=== PATIENT | female | born 1960 | race Caucasian/White ===

== ENCOUNTER 2018-01-25 15:12 | Emergency (ER) | payer OTHER, MEDICAID ==
[~2018-01-25] VITALS: Ht 167.6 cm; Wt 68.2 kg
[~2018-01-25 15:12] MED LIST: LEVO50TA67 PO; METO10TA3 PO; PROM25TA14 PO; [UNRECOGNIZED DRUG - CODE] PO; [UNRECOGNIZED DRUG - CODE] SQ
[2018-01-25] MEDS ORDERED: ALPRAZolam 0.5mg tablet PO ONE (15:45)
[2018-01-25 16:02] LABS: BASOPHILS % (AUTO) 0.4 % (0-1); EOSINOPHILS # (AUTO) 0.2 X10'3 (0-0.9); EOSINOPHILS % (AUTO) 3.1 % (0-6); HEMATOCRIT 42.9 % (35.0-45.0); HEMOGLOBIN 14.7 g/dl (12.0-16.0); LYMPHOCYTES # (AUTO) 1.4 X10'3 (1.1-4.8); LYMPHOCYTES % (AUTO) 28.2 % (21-51); MEAN CORPUSCULAR HEMOGLOBIN 31.3 PG (27.0-31.0); MEAN CORPUSCULAR HGB CONC 34.3 % (33.0-36.5); MEAN CORPUSCULAR VOLUME 91.3 FL (78-98); MEAN PLATELET VOLUME 6.8 FL (7.4-10.4); MONOCYTES # (AUTO) 0.3 X10'3 (0-0.9); MONOCYTES % (AUTO) 6.5 % (2-12); NEUTROPHILS # (AUTO) 3.1 X10'3 (1.8-7.7); NEUTROPHILS % (AUTO) 61.8 % (42-75); PLATELET COUNT 197 X10'3 (140-440); RED BLOOD COUNT 4.69 X10'6 (4.20-5.60); RED CELL DISTRIBUTION WIDTH 13.2 % (11.5-14.5); WHITE BLOOD COUNT 5.1 X10'3 (4.5-11.0)
[2018-01-25 16:06] LABS: URINE HCG NEGATIVE (NEG)
[2018-01-25 16:10] LABS: CLARITY,URINE CLEAR (Clear); COLOR,URINE STRAW (Yellow); GLUCOSE, URINE NEGATIVE (Neg); KETONES,URINE NEGATIVE (Neg); LEUKOCYTE ESTERASE ,URINE NEGATIVE (Neg); NITRITES, URINE NEGATIVE (Neg); OCCULT BLOOD,URINE NEGATIVE (Neg); PROTEIN,URINE NEGATIVE (Neg); UROBILINOGEN,URINE 0.2 E.U/dL (0.2-1.0)
[2018-01-25 16:14] LABS: UA COLLECTION TYPE CLN CATCH MIDSTREAM
[2018-01-25 16:17] LABS: URINE AMPHETAMINE SCREEN POSITIVE (Neg); URINE BARBITUATE SCREEN NEGATIVE (Neg); URINE BENZODIAZEPINES SCREEN NEGATIVE (Neg); URINE CANNABINOID SCREEN NEGATIVE (Neg); URINE COCAINE SCREEN NEGATIVE (Neg); URINE METHADONE SCREEN NEGATIVE (Neg); URINE OPIATE SCREEN NEGATIVE (Neg); URINE PHENCYCLIDINE SCREEN NEGATIVE (Neg)
[2018-01-25 16:26] LABS: ALANINE AMINOTRANSFERASE 49 U/L (12-78); ALBUMIN 4.4 G/DL (3.4-5.0); ALBUMIN/GLOBULIN RATIO 1.3 (1.1-1.5); ALKALINE PHOSPHATASE 102 IU/L (46-116); ANION GAP 8 (8-16); ASPARTATE AMINO TRANSFERASE 38 U/L (10-37); BILIRUBIN,TOTAL 0.7 MG/DL (0.1-1.0); BLOOD UREA NITROGEN 5 MG/DL (7-18); BUN/CREATININE RATIO 7.6 (6.6-38.0); CALCIUM 9.2 MG/DL (8.5-10.1); CHLORIDE 99 MMOL/L (99-107); CREATININE 0.66 MG/DL (0.40-0.90); ETHANOL 0.051 GM/DL (0.0-0.010); GLUCOSE 95 MG/DL (70-104); POTASSIUM 3.5 MMOL/L (3.5-5.1); SODIUM 138 MMOL/L (135-145); TOTAL CARBON DIOXIDE 31.2 MMOL/L (24-32); TOTAL PROTEIN 7.7 G/DL (6.4-8.2); eGFR > 90 ML/MIN
[2018-01-25] MEDS ORDERED: OLANZapine 5mg rapidly disint. tablet PO ONE (19:25)
[2018-01-25] MEDS ORDERED: quetiapine 100mg tablet PO SCH (21:00)
[2018-01-26 05:35] VITALS: BP 84/52
[2018-01-26] MEDS ORDERED: levoTHYROXINE 75mcg tablet PO SCH (07:00)
== END 2018-01-26 13:50 | disposition home or self-care (01) ==
LOC: ER 15:12
DX: R45.851 Suicidal ideations (principal); F10.10 Alcohol abuse, uncomplicated; F15.10 Other stimulant abuse, uncomplicated; F32.9 Major depressive disorder, single episode, unspecified; E03.9 Hypothyroidism, unspecified; Z88.5 Allergy status to narcotic agent; Z79.899 Other long term (current) drug therapy
CPT/HCPCS: 36415; 80053; 80305; 80320; 81003; 81025; 84443; 85025; 99285

== ENCOUNTER 2018-01-26 11:45 | Inpatient (IN) | payer OTHER, MEDICAID ==
[~2018-01-26] VITALS: Ht 175.3 cm; Wt 75.3 kg
[~2018-01-26 11:45] MED LIST changes: -METO10TA3 PO; -PROM25TA14 PO; -[UNRECOGNIZED DRUG - CODE] PO; -[UNRECOGNIZED DRUG - CODE] SQ
[2018-01-26 19:15] VITALS: BP 97/71
[2018-01-26] MEDS ORDERED: acetaminophen 325mg tablet PO PRN ×2 (19:30)
[2018-01-26] MEDS ORDERED: traZODone 50mg tablet PO PRN (19:30)
[2018-01-26] MEDS: hydrOXYzine 10 MG tablet PO PRN (22:30)
[2018-01-27] MEDS ORDERED: polyethylene glycol 3350 17gm powd pack PO PRN (05:20)
[2018-01-27] MEDS: levoTHYROXINE 75mcg tablet PO SCH (07:15)
[2018-01-27] MEDS: docusate sod 100mg capsule PO SCH (08:26)
[2018-01-27 08:52] VITALS: BP 116/84
[2018-01-27] MEDS ORDERED: duloxetine 30mg CAPSULE.DR PO ONE (13:05)
[2018-01-27] MEDS: hydrOXYzine 10 MG tablet PO PRN (20:44)
[2018-01-28] MEDS: levoTHYROXINE 75mcg tablet PO SCH (07:29)
[2018-01-28 08:00] VITALS: BP 110/71
[2018-01-28] MEDS: duloxetine 30mg CAPSULE.DR PO SCH (08:22)
[2018-01-28] MEDS: docusate sod 100mg capsule PO SCH (08:22)
[2018-01-28 19:00] VITALS: BP 122/69
[2018-01-29] MEDS: docusate sod 100mg capsule PO SCH (07:36)
[2018-01-29] MEDS: duloxetine 30mg CAPSULE.DR PO SCH (07:36)
[2018-01-29] MEDS: levoTHYROXINE 75mcg tablet PO SCH (07:36)
[2018-01-29 08:00] VITALS: BP 126/66
[2018-01-29] MEDS ORDERED: DULO30CA51 PO (17:06)
[2018-01-29] MEDS ORDERED: TRAZ-143 PO (17:06)
[2018-01-29] MEDS ORDERED: LEVO75TA7 PO (17:06)
[2018-01-29] MEDS: hydrOXYzine 10 MG tablet PO PRN (19:14)
[2018-01-29 20:00] VITALS: BP 116/64
[2018-01-30] MEDS: levoTHYROXINE 75mcg tablet PO SCH (07:06)
[2018-01-30 07:11] VITALS: BP 115/64
[2018-01-30] MEDS: duloxetine 30mg CAPSULE.DR PO SCH (08:25)
[2018-01-30] MEDS: docusate sod 100mg capsule PO SCH (08:25)
== END 2018-01-30 14:45 | disposition home or self-care (01) | DRG 885 ==
LOC: ADULT MH 11:45
PROVIDERS: ADMIT Psychiatry & Neurology Psychiatry; ATTEND Psychiatry & Neurology Psychiatry
DX: F33.9 Major depressive disorder, recurrent, unspecified (principal); R45.851 Suicidal ideations; F11.20 Opioid dependence, uncomplicated; E03.9 Hypothyroidism, unspecified; F10.10 Alcohol abuse, uncomplicated; Z71.6 Tobacco abuse counseling; F43.10 Post-traumatic stress disorder, unspecified; F15.10 Other stimulant abuse, uncomplicated; M19.041 Primary osteoarthritis, right hand; Z87.891 Personal history of nicotine dependence
CPT/HCPCS: 87070

== ENCOUNTER 2019-02-05 15:33 | Emergency (ER) | payer MEDICAID ==
[~2019-02-05] VITALS: Ht 175.3 cm; Wt 77.0 kg
[~2019-02-05 15:33] MED LIST changes: +DULO30CA51 PO; -LEVO50TA67 PO; +LEVO75TA7 PO; +TRAZ-218 PO
[2019-02-05 15:39] VITALS: BP 137/77
[2019-02-05] MEDS ORDERED: CEPH250T PO (15:47)
== END 2019-02-05 15:53 | disposition home or self-care (01) ==
LOC: ER 15:33
DX: L03.012 Cellulitis of left finger (principal); E03.9 Hypothyroidism, unspecified; F15.90 Other stimulant use, unspecified, uncomplicated; Z88.5 Allergy status to narcotic agent; Z79.899 Other long term (current) drug therapy
CPT/HCPCS: 99283

== ENCOUNTER 2019-02-06 11:31 | Emergency (ER) | payer MEDICAID ==
[~2019-02-06] VITALS: Ht 172.7 cm; Wt 80.0 kg
[~2019-02-06 11:31] MED LIST changes: +CEPH250T PO
--- NOTE | 2019-02-06 12:55 | NUR ---
SMALL GAUZE DRESSING TO THUMB AFTER BLISTER DRAINED, PT SENT HOME WITH 2X2 GAUZE AND TAPE FOR DRESSING CHANGES.
== END 2019-02-06 13:00 | disposition home or self-care (01) ==
LOC: ER 11:32
DX: L03.012 Cellulitis of left finger (principal); E03.9 Hypothyroidism, unspecified; F15.90 Other stimulant use, unspecified, uncomplicated; Z88.5 Allergy status to narcotic agent; Z79.899 Other long term (current) drug therapy
CPT/HCPCS: 10060; 99284

== ENCOUNTER 2019-06-28 17:53 | Emergency (ER) | payer MEDICAID ==
[~2019-06-28] VITALS: Ht 172.7 cm; Wt 74.0 kg
[~2019-06-28 17:53] MED LIST changes: -CEPH250T PO; -DULO30CA51 PO; +DULO30CA52 PO; -TRAZ-218 PO; +TRAZ-251 PO
[2019-06-28] MEDS ORDERED: SULF1TAB49 PO (18:33)
[2019-06-28] MEDS ORDERED: MUPI22OI30 TOP (18:33)
[2019-06-28 18:45] VITALS: BP 128/72
== END 2019-06-28 18:47 | disposition home or self-care (01) ==
LOC: ER 17:53
DX: J34.0 Abscess, furuncle and carbuncle of nose (principal); E03.9 Hypothyroidism, unspecified; F15.90 Other stimulant use, unspecified, uncomplicated; Z88.5 Allergy status to narcotic agent
CPT/HCPCS: 99283

== ENCOUNTER 2019-11-27 11:39 | Emergency (ER) | payer MEDICAID | END 2019-11-27 12:33 | disposition left against medical advice (07) | LOC: ER 11:39 | DX: L08.89 Other specified local infections of the skin and subcutaneous tissue (principal); Z53.21 Procedure and treatment not carried out due to patient leaving prior to being seen by health care provider ==

== ENCOUNTER 2020-01-07 22:59 | Emergency (ER) | payer MEDICAID ==
[~2020-01-07] VITALS: Ht 172.7 cm; Wt 99.0 kg
--- NOTE | 2020-01-07 23:04 | NUR ---
[facility] REFUSED bp CUFF DUE TO BRUISING
--- NOTE | 2020-01-08 00:44 | NUR ---
In the process of putting a dressing on patients finger, she got upset and said she would not be able to fit a glove over it and she needed to recycle??? She did not let me adjust it and got up and walked out of the ER.
== END 2020-01-08 00:52 | disposition home or self-care (01) ==
LOC: ER 22:59
DX: S60.412A Abrasion of right middle finger, initial encounter (principal); S61.232A Puncture wound without foreign body of right middle finger without damage to nail, initial encounter; E03.9 Hypothyroidism, unspecified; F32.9 Major depressive disorder, single episode, unspecified; F15.90 Other stimulant use, unspecified, uncomplicated; Z88.5 Allergy status to narcotic agent; Z79.899 Other long term (current) drug therapy; X58.XXXA Exposure to other specified factors, initial encounter; Y93.89 Activity, other specified; Y92.89 Other specified places as the place of occurrence of the external cause; Y99.8 Other external cause status
CPT/HCPCS: 99282

== ENCOUNTER 2020-03-01 03:38 | Emergency (ER) | payer MEDICAID ==
[~2020-03-01] VITALS: Ht 170.2 cm; Wt 78.0 kg
--- NOTE | 2020-03-01 03:56 | NUR ---
patient further reports ETOH usage undisclosed amount. Fuurther reporst she may not have fallen is she had not drank alcohol. Refused automated bp cuff states she can not tolerate automatic bp cuffs it brusies her, manual bp taken. refused to lift arm to place cold pack under writs states it hustr to bad to put weight on my left arm. car refil to left hand digits under 3 seconds, moves fingers on command. cold pack to top of wrsit placed arm in anterior position at heart level.
--- NOTE | 2020-03-01 04:16 | NUR ---
Radiology in room to complete xray
[2020-03-01] MEDS ORDERED: LIDOcaine 5% patch TP SCH (04:35)
[2020-03-01] MEDS ORDERED: acetaminophen 325mg tablet PO ONE ×2 (04:50→05:05)
[2020-03-01] MEDS ORDERED: LIDO700A32 TOP (04:57)
[2020-03-01 05:04] VITALS: BP 148/90
== END 2020-03-01 05:00 | disposition home or self-care (01) ==
LOC: ER 03:39
DX: S60.211A Contusion of right wrist, initial encounter (principal); E03.9 Hypothyroidism, unspecified; F32.9 Major depressive disorder, single episode, unspecified; F15.90 Other stimulant use, unspecified, uncomplicated; F10.10 Alcohol abuse, uncomplicated; Z88.5 Allergy status to narcotic agent; Z79.899 Other long term (current) drug therapy; W01.0XXA Fall on same level from slipping, tripping and stumbling without subsequent striking against object, initial encounter; Y93.89 Activity, other specified; Y92.89 Other specified places as the place of occurrence of the external cause; Y99.8 Other external cause status
CPT/HCPCS: 73110; 99284

== ENCOUNTER 2021-08-18 12:15 | Emergency (ER) | payer MEDICARE, MEDICAID ==
[~2021-08-18] VITALS: Ht 172.7 cm; Wt 77.0 kg
[~2021-08-18 12:15] MED LIST changes: +LIDO700A32 TOP
[2021-08-18 12:48] VITALS: BP 113/79
== END 2021-08-18 13:41 | disposition home or self-care (01) ==
LOC: ER 12:15
DX: U07.1 COVID-19 (principal); R09.81 Nasal congestion; E03.9 Hypothyroidism, unspecified; F12.90 Cannabis use, unspecified, uncomplicated; Z88.8 Allergy status to other drugs, medicaments and biological substances; Z79.899 Other long term (current) drug therapy
CPT/HCPCS: 36415; 71045; 99284; U0003; U0005

== ENCOUNTER 2024-01-07 12:26 | Emergency (ER) | payer MEDICARE, MEDICAID ==
[~2024-01-07] VITALS: Ht 172.7 cm; Wt 84.1 kg
[2024-01-07 13:30] LABS: BASOPHILS % (AUTO) 0.5 % (0-1); EOSINOPHILS % (AUTO) 0.3 % (0-6); HEMATOCRIT 43.5 % (35.0-45.0); HEMOGLOBIN 14.9 g/dl (12.0-16.0); LYMPHOCYTES # (AUTO) 0.7 X10'3 (1.1-4.8); LYMPHOCYTES % (AUTO) 7.9 % (21-51); MEAN CORPUSCULAR HEMOGLOBIN 31.4 PG (27.0-31.0); MEAN CORPUSCULAR HGB CONC 34.2 g/dL (33.0-36.5); MONOCYTES # (AUTO) 0.6 X10'3 (0-0.9); NEUTROPHILS # (AUTO) 7.7 X10'3 (1.8-7.7); NEUTROPHILS % (AUTO) 84.3 % (42-75); PLATELET COUNT 239 X10'3 (140-440); RED BLOOD COUNT 4.73 X10'6 (4.20-5.60); RED CELL DISTRIBUTION WIDTH 12.3 % (11.5-14.5); WHITE BLOOD COUNT 9.1 X10'3 (4.5-11.0)
[2024-01-07 13:52] LABS: ALANINE AMINOTRANSFERASE 25 U/L (12-78); ALBUMIN 3.6 G/DL (3.4-5.0); ALKALINE PHOSPHATASE 84 IU/L (46-116); ANION GAP 9 (8-16); ASPARTATE AMINO TRANSFERASE 31 U/L (10-37); BLOOD UREA NITROGEN 21 MG/DL (7-18); BUN/CREATININE RATIO 40.4 (10.0-20.0); CALCIUM 8.9 MG/DL (8.5-10.1); CHLORIDE 92 MMOL/L (99-107); CREATININE 0.52 MG/DL (0.40-0.90); GLUCOSE 117 MG/DL (70-104); POTASSIUM 3.6 MMOL/L (3.5-5.1); SODIUM 130 MMOL/L (135-145); TOTAL CARBON DIOXIDE 29.5 MMOL/L (24-32); TOTAL PROTEIN 7.2 G/DL (6.4-8.2); eCRCL 109 ML/MIN; eGFR > 90 ML/MIN
[2024-01-07] MEDS ORDERED: levetiracetam inj 1,000 MG in normal saline 100ml IV soln 90 ML IV STA (14:07)
[2024-01-07] MEDS: normal saline 1000ML IV soln IV ONE (14:11)
[2024-01-07] MEDS: ondansetron/PF 4mg/2ml inj IV ONE (14:19)
[2024-01-07] MEDS: acetaminophen 1,000mg/100ml IV 100 ML IV STA (14:20)
[2024-01-07 14:30] VITALS: TEMP 97.6
[2024-01-07] MEDS: levetiracetam inj 1,000 MG in normal saline 100ml IV soln 100 ML IV STA (14:44)
[2024-01-07 14:46] LABS: INR 1.1 INR; PROTHROMBIN TIME 11.9 SECONDS (9.0-12.0)
[2024-01-07 15:04] VITALS: BP 167/88; PULSE 77; RESP 16; O2SAT 100
== END 2024-01-07 15:37 | disposition short-term general hospital (02) ==
LOC: ER 12:26
DX: S06.5XAA Traumatic subdural hemorrhage with loss of consciousness status unknown, initial encounter (principal); E03.9 Hypothyroidism, unspecified; F15.90 Other stimulant use, unspecified, uncomplicated; Z88.5 Allergy status to narcotic agent; Z79.899 Other long term (current) drug therapy; X58.XXXA Exposure to other specified factors, initial encounter; Y93.89 Activity, other specified; Y92.89 Other specified places as the place of occurrence of the external cause; Y99.8 Other external cause status
CPT/HCPCS: 36415; 70450; 80053; 84145; 85025; 85610; 96374; 96375; 99291; J0131; J1953; J2405; J3490; J7030

== ENCOUNTER 2024-08-03 16:17 | Emergency (ER) | payer MEDICARE, MEDICAID ==
[~2024-08-03] VITALS: Ht 172.7 cm; Wt 75.0 kg
[2024-08-03 17:02] VITALS: BP 146/82; PULSE 94; RESP 16; O2SAT 97
[2024-08-03] MEDS ORDERED: TRIA15CR61 TOP (18:33)
[2024-08-03 19:21] VITALS: TEMP 98.2
[2024-08-03] MEDS: dexamethasone sod phosphate 10mg/ml inj IM STA (19:21)
== END 2024-08-03 19:29 | disposition home or self-care (01) ==
LOC: ER 16:18
DX: S40.861A Insect bite (nonvenomous) of right upper arm, initial encounter (principal); L50.9 Urticaria, unspecified; E03.9 Hypothyroidism, unspecified; F32.A Depression, unspecified; F15.90 Other stimulant use, unspecified, uncomplicated; Z88.5 Allergy status to narcotic agent; Z79.899 Other long term (current) drug therapy; W57.XXXA Bitten or stung by nonvenomous insect and other nonvenomous arthropods, initial encounter; Y93.89 Activity, other specified; Y92.89 Other specified places as the place of occurrence of the external cause; Y99.8 Other external cause status
CPT/HCPCS: 96372; 99283; J1100

== ENCOUNTER 2024-08-17 15:20 | Emergency (ER) | payer MEDICARE, MEDICAID ==
[~2024-08-17] VITALS: Ht 162.6 cm; Wt 74.0 kg
[~2024-08-17 15:20] MED LIST changes: +TRIA15CR61 TOP
[2024-08-17 16:25] VITALS: BP 130/72; PULSE 78; RESP 16; TEMP 98.8; O2SAT 99
== END 2024-08-17 16:26 | disposition home or self-care (01) ==
LOC: ER 15:20
DX: L84 Corns and callosities (principal); E03.9 Hypothyroidism, unspecified; F32.A Depression, unspecified; F15.90 Other stimulant use, unspecified, uncomplicated; F10.10 Alcohol abuse, uncomplicated; Z88.5 Allergy status to narcotic agent
CPT/HCPCS: 99281

== ENCOUNTER 2024-11-23 18:25 | Emergency (ER) | payer MEDICARE, MEDICAID ==
[~2024-11-23] VITALS: Ht 172.7 cm; Wt 77.5 kg
[~2024-11-23 18:25] MED LIST changes: -TRIA15CR61 TOP
[2024-11-23 18:47] VITALS: TEMP 101.2
[2024-11-23 19:41] LABS: BASOPHILS % (AUTO) 0.8 % (0-1); EOSINOPHILS # (AUTO) 0.1 X10'3 (0-0.9); EOSINOPHILS % (AUTO) 1.7 % (0-6); HEMOGLOBIN 13.4 g/dl (12.0-16.0); LYMPHOCYTES # (AUTO) 1.2 X10'3 (1.1-4.8); LYMPHOCYTES % (AUTO) 19.8 % (21-51); MEAN CORPUSCULAR HEMOGLOBIN 31.8 PG (27.0-31.0); MEAN CORPUSCULAR HGB CONC 33.4 g/dL (33.0-36.5); MONOCYTES # (AUTO) 0.6 X10'3 (0-0.9); MONOCYTES % (AUTO) 9.7 % (2-12); PLATELET COUNT 207 X10'3 (140-440); RED BLOOD COUNT 4.22 X10'6 (4.20-5.60); RED CELL DISTRIBUTION WIDTH 12.7 % (11.5-14.5); WHITE BLOOD COUNT 5.9 X10'3 (4.5-11.0)
[2024-11-23 20:21] LABS: ALBUMIN 3.6 G/DL (3.4-5.0); ANION GAP 11 (8-16); BLOOD UREA NITROGEN 15 MG/DL (7-18); BUN/CREATININE RATIO 23.1 (10.0-20.0); CALCIUM 8.7 MG/DL (8.5-10.1); CHLORIDE 102 MMOL/L (99-107); CREATININE 0.65 MG/DL (0.40-0.90); GLUCOSE 98 MG/DL (70-104); POTASSIUM 3.6 MMOL/L (3.5-5.1); SODIUM 138 MMOL/L (135-145); TOTAL CARBON DIOXIDE 25.5 MMOL/L (24-32); eCRCL 87 ML/MIN; eGFR > 90 ML/MIN
[2024-11-23 22:12] VITALS: BP 138/83; PULSE 98; RESP 20; O2SAT 97
[2024-11-23] MEDS ORDERED: FLUT16SP2 BOTHNARES (23:11)
[2024-11-23] MEDS ORDERED: BENZ-38 PO (23:11)
[2024-11-23] MEDS ORDERED: AMOX-580 PO (23:11)
[2024-11-23] MEDS: amox tr/potassium clavulanate 875/125mg TAB PO ONE (23:44)
[2024-11-23] MEDS: benzonatate 100mg capsule PO ONE (23:44)
[2024-11-23] MEDS: fluticasone nasal spray 16GM bottle NS STA (23:45)
== END 2024-11-23 23:50 | disposition home or self-care (01) ==
LOC: ER 18:25
DX: J01.00 Acute maxillary sinusitis, unspecified (principal); E03.9 Hypothyroidism, unspecified; F10.10 Alcohol abuse, uncomplicated; F15.90 Other stimulant use, unspecified, uncomplicated; F32.A Depression, unspecified; Z88.5 Allergy status to narcotic agent; Z79.899 Other long term (current) drug therapy; Z79.52 Long term (current) use of systemic steroids; Z20.822 Contact with and (suspected) exposure to COVID-19; Y90.9 Presence of alcohol in blood, level not specified
CPT/HCPCS: 36415; 71045; 80048; 83605; 84145; 85025; 87040; 87502; 87503; 87811; 93005; 99285

== ENCOUNTER 2025-01-01 22:29 | Emergency (ER) | payer MEDICARE, MEDICAID ==
[~2025-01-01] VITALS: Ht 172.7 cm; Wt 70.0 kg
[~2025-01-01 22:29] MED LIST changes: +FLUT16SP2 BOTHNARES
[2025-01-02] MEDS ORDERED: ACET-812 PO (00:19)
[2025-01-02] MEDS ORDERED: IBUP-1985 PO (00:19)
[2025-01-02] MEDS: ketorolac trometh 15mg/ml vial 15 MG/ML ML IM ONE (00:46)
[2025-01-02] MEDS: acetaminophen 325mg tablet PO ONE (00:47)
[2025-01-02 00:52] VITALS: BP 142/86; PULSE 88; RESP 16; TEMP 98.8; O2SAT 99
== END 2025-01-02 00:53 | disposition home or self-care (01) ==
LOC: ER 22:29
DX: M25.561 Pain in right knee (principal); E03.9 Hypothyroidism, unspecified; F32.A Depression, unspecified; F15.90 Other stimulant use, unspecified, uncomplicated; F10.10 Alcohol abuse, uncomplicated; Z88.5 Allergy status to narcotic agent; Z79.52 Long term (current) use of systemic steroids; Z79.899 Other long term (current) drug therapy; Y90.9 Presence of alcohol in blood, level not specified; W01.0XXA Fall on same level from slipping, tripping and stumbling without subsequent striking against object, initial encounter; Y93.89 Activity, other specified; Y92.89 Other specified places as the place of occurrence of the external cause; Y99.8 Other external cause status
CPT/HCPCS: 73564; 96372; 99283; J1885